=== PATIENT | male | born 1985 | race Caucasian/White ===

== ENCOUNTER 2020-11-23 19:53 | Inpatient (IN) | payer OTHER ==
[~2020-11-23] VITALS: Ht 193 cm; Wt 107.3 kg
--- NOTE | 2020-11-23 20:07 | NUR ---
LYNETTE FROM [facility] FOR A UTI. EMS STATES PT WAS TRANSFERRED FOR POSSIBLE GALLBLADDER INFLAMATION. PT SYMPTOMS BEGAN LAST THURSDAY. PT REPORTS A FEVER, VOMITTING, PAIN IN THIGHS AND TESTICLES, FLANK PAIN, AND FREQUENT OLIGURIA LAST THURSDAY. NO CURRENTL SYMPTOMS AT THIS TIME. PT TREATED WITH POTASSIUM, ATX, 2800 FLUIDS AND TYLENOL MANAGER HEAVY DUTY FOR SEPSIS PROTOCOL. PT REPORTS NO DISCHARGE FROM PENIS BUT MILD HEMATURIA. ATTACHED TO CARD/SP02/BP MONITORS. VSS. NADN. BED IN LOW POSITION, RAILS ENGAGED, CALL LIGHT ON LAP. WCTM
[2020-11-23 21:09] LABS: BASOPHILS % (AUTO) 0 % (0-1); EOSINOPHILS % (AUTO) 0 % (1-7); LYMPHOCYTES % (AUTO) 33 % (22-44); MEAN CORPUSCULAR HEMOGLOBIN 30.1 pg (27.5-34.5); MEAN CORPUSCULAR HGB CONC 35.1 g/dL (33.2-36.2); MONOCYTES % (AUTO) 12 % (2-9); NEUTROPHILS % (AUTO) 55 % (42-75); PLATELET COUNT 226 x10^3/uL (130-400); RED BLOOD COUNT 4.18 x10^6/uL (4.38-5.82); RED CELL DISTRIBUTION WIDTH 12.3 % (9.4-14.8)
[2020-11-23 21:13] LABS: ALANINE AMINOTRANSFERASE 29 U/L (12-78); ANION GAP 8 mmol/L (5-15); CHLORIDE 102 mmol/L (98-107); CREATININE 0.97 mg/dL (0.7-1.3)
[2020-11-23 21:15] LABS: ALKALINE PHOSPHATASE 57 U/L (45-117); TOTAL PROTEIN 6.5 g/dL (6.4-8.2)
--- NOTE | 2020-11-23 21:23 | NUR ---
PT OFF UNIT IN IMAGING
[2020-11-23 21:36] LABS: MICROSCOPIC AUTO
[2020-11-23] MEDS ORDERED: ACETAMINOPHEN 500 MG TABLET ONE (21:42)
[2020-11-23] MEDS ORDERED: ACETAMINOPHEN 500 MG TABLET PO ONE (22:00)
--- NOTE | 2020-11-23 22:04 | NUR ---
PT SLEEPING IN BED. EYES CLOSED. GIVEN BLANKETS AND PILLOW ERLIER. CONNECTED TO ALL MONITORS. VSS WITH LOWERED HR 50 . WCTM.
[2020-11-23] MEDS ORDERED: ALBUTEROL/IPRATROPIUM 2.5MG/0.5MG, 3 ML NPPB ONE (23:00)
[2020-11-24 01:05] LABS: GLUCOSE, CSF 40 mg/dL (40-80); TOTAL PROTEIN,CSF 263 mg/dL (15-45)
--- NOTE | 2020-11-24 02:29 | NUR ---
Patient is resting comfortably in bed. Bed in lowest, rails engaged, call light on lap. Vital Signs within normal limits. WCTM.
[2020-11-24] MEDS ORDERED: CEFTRIAXONE 2 GM in DEXTROSE 5% 50 ML IVPB ONE (02:30)
--- NOTE | 2020-11-24 03:59 | NUR ---
PT STATES HE DOES NOT TAKE ANY MEDICATIONS FOR MED REC.
[2020-11-24] MEDS ORDERED: ONDANSETRON 2MG/ML, 2ML IVPush PRN (04:00)
[2020-11-24] MEDS ORDERED: LACTATED RINGERS 1,000 ML IV SCH (04:00)
[2020-11-24] MEDS ORDERED: GUAIFENESIN/DM 200-20MG, 10ML UDC PO PRN (04:00)
[2020-11-24] MEDS ORDERED: LABETALOL 5MG/ML, 20ML IVPush PRN (04:00)
[2020-11-24] MEDS ORDERED: MELATONIN 5 MG TABLET PO PRN (04:00)
--- NOTE | 2020-11-24 04:11 | NUR ---
[facility] STATES WE DO NOT NEED ISO ON PT. PT LAST BM THURSDAY.
--- NOTE | 2020-11-24 04:12 | NUR ---
LACTATED RINGERS AND ROCEPHIN INCOMPATIBLE ACCORDING TO MICROMEDIX
--- NOTE | 2020-11-24 04:24 | NUR ---
DID NOT GIVE ROCEPHIN. AWAITING ORDER TO CHANGE OCCORDING TO 12 HOUR TIME. LAST DOSE WAS AT [id number]. PT RSTING IN BED. VSS. AWAITING TO GO TO FLOOR. EVAN.
[2020-11-24] MEDS ORDERED: KETOROLAC 30 MG/1 ML ONE (04:26)
[2020-11-24] MEDS: KETOROLAC 30 MG/1 ML IV PRN ×2 (04:27→18:05)
[2020-11-24 05:06] LABS: ALANINE AMINOTRANSFERASE 27 U/L (12-78); ALBUMIN 2.9 g/dL (3.4-5.0); ANION GAP 7 mmol/L (5-15); CHLORIDE 97 mmol/L (98-107); CREATININE 0.86 mg/dL (0.7-1.3)
[2020-11-24 05:12] LABS: BASOPHILS % (AUTO) 0 % (0-1); EOSINOPHILS % (AUTO) 0 % (1-7); LYMPHOCYTES % (AUTO) 15 % (22-44); MEAN CORPUSCULAR HEMOGLOBIN 30.4 pg (27.5-34.5); MEAN CORPUSCULAR HGB CONC 35.9 g/dL (33.2-36.2); MEAN PLATELET VOLUME 8.1 fL (7.4-10.4); MONOCYTES % (AUTO) 9 % (2-9); NEUTROPHILS % (AUTO) 76 % (42-75); PLATELET COUNT 219 x10^3/uL (130-400); RED BLOOD COUNT 4.11 x10^6/uL (4.38-5.82); RED CELL DISTRIBUTION WIDTH 12.4 % (9.4-14.8)
[2020-11-24 05:17] LABS: ALKALINE PHOSPHATASE 56 U/L (45-117); BILIRUBIN,TOTAL 0.8 mg/dL (0.2-1.0); TOTAL PROTEIN 6.4 g/dL (6.4-8.2)
[2020-11-24 05:27] VITALS: BP 147/61
[2020-11-24] MEDS: ACETAMINOPHEN 325 MG TABLET PO PRN ×2 (05:49→13:12)
[2020-11-24 06:49] LABS: RAPID INFLUENZA A Negative (Negative); RAPID INFLUENZA B Negative (Negative)
[2020-11-24 06:58] VITALS: BP 115/74
[2020-11-24] MEDS ORDERED: POTASSIUM CHLORIDE 20 MEQ TAB.ER.PRT PO ONE ×2 (07:00→08:00)
[2020-11-24] MEDS ORDERED: VANCOMYCIN PER PHARMACY MC PRN (08:00)
[2020-11-24 08:56] LABS: HCT (SEDRATE) 35.6 % (39.2-51.8)
[2020-11-24] MEDS ORDERED: PHARMACOKINETIC MONITORING MC PRN (09:00)
[2020-11-24] MEDS ORDERED: VANCOMYCIN 2,500 MG in SODIUM CHLORIDE 0.9% 500 ML IV ONE (09:00)
[2020-11-24 10:44] LABS: MICROSCOPIC NOT IND
[2020-11-24] MEDS: NS + 20MEQ KCL 1,000 ML IV SCH (11:11)
[2020-11-24 13:09] VITALS: BP 134/88
[2020-11-24] MEDS ORDERED: DIPHENHYDRAMINE 50 MG/ML, 1ML IVPush PRN (13:30)
[2020-11-24] MEDS: TAMSULOSIN 0.4 MG CAP.ER.24H PO SCH (13:57)
[2020-11-24] MEDS: PHENAZOPYRIDINE 200 MG TABLET PO PRN (13:57)
[2020-11-24] MEDS: CEFTRIAXONE 2 GM in DEXTROSE 5% 50 ML IVPB SCH (14:57)
[2020-11-24] MEDS: ACYCLOVIR 1,000 MG in SODIUM CHLORIDE 0.9% 250 ML IV SCH (18:05)
[2020-11-24] MEDS: VANCOMYCIN 1,900 MG in SODIUM CHLORIDE 0.9% 250 ML IV SCH (19:23)
[2020-11-24 19:29] VITALS: BP 133/74
[2020-11-25] MEDS: ACETAMINOPHEN 325 MG TABLET PO PRN ×3 (00:07→15:48)
[2020-11-25 00:36] VITALS: BP 158/74
[2020-11-25] MEDS: KETOROLAC 30 MG/1 ML IV PRN ×2 (00:38→06:29)
[2020-11-25] MEDS: NS + 20MEQ KCL 1,000 ML IV SCH ×2 (00:48→21:36)
[2020-11-25] MEDS: ACYCLOVIR 1,000 MG in SODIUM CHLORIDE 0.9% 250 ML IV SCH ×3 (01:34→18:05)
[2020-11-25] MEDS: CEFTRIAXONE 2 GM in DEXTROSE 5% 50 ML IVPB SCH ×2 (03:05→17:02)
[2020-11-25] MEDS: VANCOMYCIN 1,900 MG in SODIUM CHLORIDE 0.9% 250 ML IV SCH (03:40)
[2020-11-25 05:03] LABS: BASOPHILS % (AUTO) 0 % (0-1); EOSINOPHILS % (AUTO) 0 % (1-7); LYMPHOCYTES % (AUTO) 22 % (22-44); MEAN CORPUSCULAR HEMOGLOBIN 29.9 pg (27.5-34.5); MEAN CORPUSCULAR HGB CONC 35.4 g/dL (33.2-36.2); MEAN PLATELET VOLUME 8.2 fL (7.4-10.4); MONOCYTES % (AUTO) 9 % (2-9); NEUTROPHILS % (AUTO) 69 % (42-75); PLATELET COUNT 251 x10^3/uL (130-400); RED BLOOD COUNT 4.07 x10^6/uL (4.38-5.82); RED CELL DISTRIBUTION WIDTH 12.2 % (9.4-14.8)
[2020-11-25 05:14] LABS: ANION GAP 4 mmol/L (5-15); CHLORIDE 100 mmol/L (98-107)
[2020-11-25 05:15] LABS: CREATININE 0.98 mg/dL (0.7-1.3)
[2020-11-25] MEDS ORDERED: SINCALIDE (KINEVAC) 5 MCG ONE (06:28)
[2020-11-25 07:18] VITALS: BP 138/70
[2020-11-25] MEDS ORDERED: POTASSIUM CHLORIDE 20 MEQ TAB.ER.PRT PO ONE (07:30)
[2020-11-25] MEDS: TAMSULOSIN 0.4 MG CAP.ER.24H PO SCH (08:15)
[2020-11-25] MEDS ORDERED: VANCOMYCIN 1,900 MG in SODIUM CHLORIDE 0.9% 250 ML IV SCH (13:00)
[2020-11-25] MEDS: HYDROcodone/APAP 5/325 TABLET PO PRN ×2 (13:29→21:40)
[2020-11-25] MEDS: VANCOMYCIN 2,100 MG in SODIUM CHLORIDE 0.9% 500 ML IV SCH ×2 (13:53→21:35)
[2020-11-25 15:15] VITALS: BP 137/78
[2020-11-25] MEDS ORDERED: GADOTERATE 10 MMOL/20ML SYR ONE (15:29)
[2020-11-25] MEDS: POLYETHYLENE GLYCOL 17 GM PACKET PO PRN (15:55)
[2020-11-25 20:09] VITALS: BP 130/73
[2020-11-26] MEDS: ACYCLOVIR 1,000 MG in SODIUM CHLORIDE 0.9% 250 ML IV SCH ×3 (01:53→17:24)
[2020-11-26] MEDS: HYDROcodone/APAP 5/325 TABLET PO PRN ×3 (03:12→16:02)
[2020-11-26 03:33] VITALS: BP 140/89
[2020-11-26] MEDS: ACETAMINOPHEN 325 MG TABLET PO PRN ×3 (03:46→19:36)
[2020-11-26] MEDS: CEFTRIAXONE 2 GM in DEXTROSE 5% 50 ML IVPB SCH ×2 (03:47→15:56)
[2020-11-26 05:02] LABS: BASOPHILS % (AUTO) 1 % (0-1); EOSINOPHILS % (AUTO) 0 % (1-7); LYMPHOCYTES % (AUTO) 21 % (22-44); MEAN CORPUSCULAR HEMOGLOBIN 30.2 pg (27.5-34.5); MEAN CORPUSCULAR HGB CONC 35.7 g/dL (33.2-36.2); MEAN PLATELET VOLUME 8.5 fL (7.4-10.4); MONOCYTES % (AUTO) 9 % (2-9); NEUTROPHILS % (AUTO) 69 % (42-75); PLATELET COUNT 287 x10^3/uL (130-400); RED BLOOD COUNT 4.09 x10^6/uL (4.38-5.82); RED CELL DISTRIBUTION WIDTH 12.1 % (9.4-14.8)
[2020-11-26 05:05] LABS: ANION GAP 8 mmol/L (5-15); CHLORIDE 97 mmol/L (98-107); CREATININE 0.96 mg/dL (0.7-1.3)
[2020-11-26] MEDS: VANCOMYCIN 2,100 MG in SODIUM CHLORIDE 0.9% 500 ML IV SCH ×2 (05:30→13:02)
[2020-11-26 07:30] VITALS: BP 136/80
[2020-11-26] MEDS ORDERED: POTASSIUM CHLORIDE 20 MEQ TAB.ER.PRT PO ONE (07:30)
[2020-11-26] MEDS: TAMSULOSIN 0.4 MG CAP.ER.24H PO SCH (08:22)
[2020-11-26] MEDS: NS + 20MEQ KCL 1,000 ML IV SCH ×2 (09:46→23:20)
[2020-11-26] MEDS: KETOROLAC 30 MG/1 ML IV PRN ×2 (11:25→19:37)
[2020-11-26 14:42] VITALS: BP 129/78
[2020-11-26] MEDS ORDERED: OMNIPAQUE 350 MG/ML, 100ML BOTTLE ONE (15:32)
[2020-11-26 19:29] VITALS: BP 145/80
[2020-11-27 00:46] VITALS: BP 114/74
[2020-11-27] MEDS: ACYCLOVIR 1,000 MG in SODIUM CHLORIDE 0.9% 250 ML IV SCH (01:47)
[2020-11-27] MEDS: KETOROLAC 30 MG/1 ML IV PRN ×4 (02:30→21:42)
[2020-11-27] MEDS: CEFTRIAXONE 2 GM in DEXTROSE 5% 50 ML IVPB SCH ×2 (03:00→15:34)
[2020-11-27] MEDS: HYDROcodone/APAP 5/325 TABLET PO PRN ×2 (03:46→19:46)
[2020-11-27 04:40] LABS: BASOPHILS % (AUTO) 1 % (0-1); EOSINOPHILS % (AUTO) 1 % (1-7); LYMPHOCYTES % (AUTO) 19 % (22-44); MEAN CORPUSCULAR HEMOGLOBIN 29.9 pg (27.5-34.5); MEAN CORPUSCULAR HGB CONC 35.2 g/dL (33.2-36.2); MEAN PLATELET VOLUME 7.6 fL (7.4-10.4); MONOCYTES % (AUTO) 8 % (2-9); NEUTROPHILS % (AUTO) 72 % (42-75); PLATELET COUNT 317 x10^3/uL (130-400); RED BLOOD COUNT 4.32 x10^6/uL (4.38-5.82); RED CELL DISTRIBUTION WIDTH 12.3 % (9.4-14.8)
[2020-11-27 04:51] LABS: ALANINE AMINOTRANSFERASE 36 U/L (12-78); ALBUMIN 2.7 g/dL (3.4-5.0); ANION GAP 7 mmol/L (5-15); CALCIUM 8.3 mg/dL (8.5-10.1); CHLORIDE 99 mmol/L (98-107)
[2020-11-27 04:54] LABS: ALKALINE PHOSPHATASE 58 U/L (45-117); BILIRUBIN,TOTAL 0.6 mg/dL (0.2-1.0); CREATININE 0.82 mg/dL (0.7-1.3); TOTAL PROTEIN 6.7 g/dL (6.4-8.2)
[2020-11-27 06:57] VITALS: BP 139/78
[2020-11-27] MEDS: ACETAMINOPHEN 325 MG TABLET PO PRN ×3 (06:57→19:47)
[2020-11-27] MEDS: TAMSULOSIN 0.4 MG CAP.ER.24H PO SCH ×2 (08:23→21:42)
[2020-11-27] MEDS: morphine SULFATE 10 MG/ML, 1ML IVPush PRN ×2 (08:23→22:12)
[2020-11-27] MEDS: NS + 20MEQ KCL 1,000 ML IV SCH ×2 (11:04→21:42)
[2020-11-27] MEDS ORDERED: DOXYCYCLINE 100MG TABLET PO SCH (12:00)
[2020-11-27 13:36] VITALS: BP 152/92
[2020-11-27] MEDS: DOXYCYCLINE 100 MG in DEXTROSE 5% 250 ML IV SCH (13:51)
[2020-11-27 19:10] VITALS: BP 118/76
[2020-11-27] MEDS: POLYETHYLENE GLYCOL 17 GM PACKET PO PRN (19:46)
[2020-11-28] MEDS: DOXYCYCLINE 100 MG in DEXTROSE 5% 250 ML IV SCH (01:43)
[2020-11-28 01:45] VITALS: BP 117/69
[2020-11-28] MEDS: CEFTRIAXONE 2 GM in DEXTROSE 5% 50 ML IVPB SCH ×2 (03:07→16:34)
[2020-11-28] MEDS: morphine SULFATE 10 MG/ML, 1ML IVPush PRN (03:26)
[2020-11-28 04:47] LABS: HCT (SEDRATE) 38.3 % (39.2-51.8)
[2020-11-28 04:53] LABS: BASOPHILS % (AUTO) 0 % (0-1); EOSINOPHILS % (AUTO) 1 % (1-7); LYMPHOCYTES % (AUTO) 17 % (22-44); MEAN PLATELET VOLUME 7.8 fL (7.4-10.4); MONOCYTES % (AUTO) 8 % (2-9); NEUTROPHILS % (AUTO) 74 % (42-75); PLATELET COUNT 350 x10^3/uL (130-400); RED CELL DISTRIBUTION WIDTH 12.4 % (9.4-14.8)
[2020-11-28 04:56] LABS: ALBUMIN 2.8 g/dL (3.4-5.0); ANION GAP 2 mmol/L (5-15); CALCIUM 8.6 mg/dL (8.5-10.1); CHLORIDE 102 mmol/L (98-107)
[2020-11-28 05:03] LABS: ALANINE AMINOTRANSFERASE 36 U/L (12-78); ALKALINE PHOSPHATASE 60 U/L (45-117); BILIRUBIN,TOTAL 0.6 mg/dL (0.2-1.0); CREATININE 1.02 mg/dL (0.7-1.3); TOTAL PROTEIN 6.7 g/dL (6.4-8.2)
[2020-11-28 06:44] VITALS: BP 143/87
[2020-11-28] MEDS: ACETAMINOPHEN 325 MG TABLET PO PRN ×2 (07:02→19:39)
[2020-11-28] MEDS: KETOROLAC 30 MG/1 ML IV PRN ×2 (07:04→14:06)
[2020-11-28] MEDS: NS + 20MEQ KCL 1,000 ML IV SCH ×3 (08:17→23:23)
[2020-11-28] MEDS: TAMSULOSIN 0.4 MG CAP.ER.24H PO SCH ×2 (08:17→19:39)
[2020-11-28 13:39] VITALS: BP 134/87
[2020-11-28] MEDS: HYDROcodone/APAP 5/325 TABLET PO PRN (14:05)
[2020-11-28 19:24] VITALS: BP 153/103
[2020-11-29 00:17] VITALS: BP 125/81
[2020-11-29] MEDS: CEFTRIAXONE 2 GM in DEXTROSE 5% 50 ML IVPB SCH (03:19)
[2020-11-29] MEDS: HYDROcodone/APAP 5/325 TABLET PO PRN ×2 (03:19→18:04)
[2020-11-29] MEDS: ACETAMINOPHEN 325 MG TABLET PO PRN (03:27)
[2020-11-29 05:50] LABS: ANION GAP 6 mmol/L (5-15); CALCIUM 8.8 mg/dL (8.5-10.1); CHLORIDE 102 mmol/L (98-107)
[2020-11-29 07:59] VITALS: BP 130/86
[2020-11-29] MEDS: NS + 20MEQ KCL 1,000 ML IV SCH ×2 (09:09→19:34)
[2020-11-29] MEDS: TAMSULOSIN 0.4 MG CAP.ER.24H PO SCH ×2 (09:09→21:09)
[2020-11-29 11:45] LABS: BASOPHILS % (AUTO) 1 % (0-1); EOSINOPHILS % (AUTO) 1 % (1-7); LYMPHOCYTES % (AUTO) 19 % (22-44); MEAN CORPUSCULAR HEMOGLOBIN 30.4 pg (27.5-34.5); MEAN PLATELET VOLUME 7.2 fL (7.4-10.4); MONOCYTES % (AUTO) 9 % (2-9); NEUTROPHILS % (AUTO) 72 % (42-75); PLATELET COUNT 389 x10^3/uL (130-400); RED BLOOD COUNT 4.41 x10^6/uL (4.38-5.82); RED CELL DISTRIBUTION WIDTH 12.7 % (9.4-14.8)
[2020-11-29] MEDS: DOXYCYCLINE 100 MG in DEXTROSE 5% 250 ML IV SCH (12:48)
[2020-11-29 13:38] VITALS: BP 151/95
[2020-11-29 14:15] LABS: BORRELIA SMEAR NO SPIROCHETES SEEN (NONE SEEN)
[2020-11-29] MEDS: PHENAZOPYRIDINE 200 MG TABLET PO PRN (18:03)
[2020-11-29 21:10] VITALS: BP 120/80
[2020-11-30] MEDS: DOXYCYCLINE 100 MG in DEXTROSE 5% 250 ML IV SCH ×2 (00:06→12:06)
[2020-11-30 01:15] VITALS: BP 124/79
[2020-11-30] MEDS: NS + 20MEQ KCL 1,000 ML IV SCH ×2 (04:26→17:55)
[2020-11-30 06:32] VITALS: BP 121/74
[2020-11-30] MEDS: TAMSULOSIN 0.4 MG CAP.ER.24H PO SCH ×2 (08:52→20:52)
[2020-11-30 09:25] LABS: HCT (SEDRATE) 38.1 % (39.2-51.8)
[2020-11-30] MEDS ORDERED: LORazepam 2 MG/ML, 1ML IVPush ONE ×2 (11:00→17:00)
[2020-11-30 11:08] LABS: C-REACTIVE PROTEIN, QUANT 1.6 mg/dL (0.02-0.49)
[2020-11-30] MEDS ORDERED: GADOTERATE 10 MMOL/20ML SYR ONE (16:50)
[2020-11-30 20:48] VITALS: BP 123/82
[2020-12-01] MEDS: DOXYCYCLINE 100 MG in DEXTROSE 5% 250 ML IV SCH (00:28)
[2020-12-01 00:30] VITALS: BP 117/75
[2020-12-01] MEDS: NS + 20MEQ KCL 1,000 ML IV SCH (04:00)
[2020-12-01 06:52] VITALS: BP 122/80
[2020-12-01] MEDS: TAMSULOSIN 0.4 MG CAP.ER.24H PO SCH ×2 (09:10→20:39)
[2020-12-01 12:30] VITALS: BP 121/80
[2020-12-01 19:44] VITALS: BP 115/75
[2020-12-02 01:30] VITALS: BP 125/84
[2020-12-02 08:10] VITALS: BP 134/83
[2020-12-02] MEDS: TAMSULOSIN 0.4 MG CAP.ER.24H PO SCH ×2 (09:04→20:26)
[2020-12-02] MEDS: NS + 20MEQ KCL 1,000 ML IV SCH (09:07)
[2020-12-02 12:57] VITALS: BP 129/81
[2020-12-02 19:23] VITALS: BP 129/64
[2020-12-03] MEDS: NS + 20MEQ KCL 1,000 ML IV SCH ×2 (00:06→12:41)
[2020-12-03 01:16] VITALS: BP 126/74
[2020-12-03 05:01] LABS: BASOPHILS % (AUTO) 0 % (0-1); EOSINOPHILS % (AUTO) 0 % (1-7); LYMPHOCYTES % (AUTO) 5 % (22-44); MEAN CORPUSCULAR HEMOGLOBIN 30.9 pg (27.5-34.5); MEAN CORPUSCULAR HGB CONC 35.1 g/dL (33.2-36.2); MEAN PLATELET VOLUME 7.5 fL (7.4-10.4); MONOCYTES % (AUTO) 1 % (2-9); NEUTROPHILS % (AUTO) 94 % (42-75); PLATELET COUNT 468 x10^3/uL (130-400); RED BLOOD COUNT 4.03 x10^6/uL (4.38-5.82); RED CELL DISTRIBUTION WIDTH 12.9 % (9.4-14.8)
[2020-12-03 05:16] LABS: ALANINE AMINOTRANSFERASE 77 U/L (12-78); ALBUMIN 3.1 g/dL (3.4-5.0); ANION GAP 6 mmol/L (5-15); C-REACTIVE PROTEIN, QUANT 0.64 mg/dL (0.02-0.49); CHLORIDE 103 mmol/L (98-107)
[2020-12-03 05:19] LABS: ALKALINE PHOSPHATASE 65 U/L (45-117); BILIRUBIN,TOTAL 0.9 mg/dL (0.2-1.0); TOTAL PROTEIN 6.8 g/dL (6.4-8.2)
[2020-12-03] MEDS: PANTOPRAZOLE 40MG TABLET PO SCH (05:27)
[2020-12-03 05:53] LABS: HCT (SEDRATE) 35.5 % (39.2-51.8)
[2020-12-03 06:51] VITALS: BP 128/51
[2020-12-03] MEDS: TAMSULOSIN 0.4 MG CAP.ER.24H PO SCH ×2 (08:41→21:02)
[2020-12-03] MEDS: CHOLECALCIFEROL 5,000u TAB PO SCH (08:42)
[2020-12-03 13:00] VITALS: BP 124/79
[2020-12-03 19:09] VITALS: BP 132/80
[2020-12-04 02:04] VITALS: BP 117/66
[2020-12-04] MEDS: PANTOPRAZOLE 40MG TABLET PO SCH (05:28)
[2020-12-04 06:46] VITALS: BP 126/71
[2020-12-04] MEDS: CHOLECALCIFEROL 5,000u TAB PO SCH (09:51)
[2020-12-04] MEDS: TAMSULOSIN 0.4 MG CAP.ER.24H PO SCH (09:51)
[2020-12-04] MEDS ORDERED: TAMS-11 PO (11:06)
[2020-12-04] MEDS ORDERED: HYDR-2214 PO (11:06)
[2020-12-04] MEDS ORDERED: PRED20TA PO (11:26)
[2020-12-04 13:21] VITALS: BP 124/76
[2020-12-04 16:22] LABS: ANA SCREEN POSITIVE (Negative); ANA TITER 1:40; ANTI-NUCLEAR ANTIBODY PATTERN NUCLEOLAR
== END 2020-12-04 14:55 | disposition home or self-care (01) | DRG 98 ==
LOC: ED 19:58 → EDIP 11-24 03:07 → 4NE 11-24 05:06 → 3N 11-26 17:42
PROVIDERS: ADMIT Internal Medicine; ATTEND Hospitalist
PROC: 009U3ZX Drainage of Spinal Canal, Percutaneous Approach, Diagnostic (ICD-10-PCS; principal; 2020-11-24)
DX: G37.3 Acute transverse myelitis in demyelinating disease of central nervous system (principal); A87.9 Viral meningitis, unspecified; E87.1 Hypo-osmolality and hyponatremia; E87.6 Hypokalemia; M48.02 Spinal stenosis, cervical region; N43.3 Hydrocele, unspecified; I86.1 Scrotal varices; N45.1 Epididymitis; E87.8 Other disorders of electrolyte and fluid balance, not elsewhere classified; D63.8 Anemia in other chronic diseases classified elsewhere; N30.90 Cystitis, unspecified without hematuria; Z79.899 Other long term (current) drug therapy
CPT/HCPCS: 36415; 62270; 70553; 71046; 72156; 72157; 72158; 72193; 76870; 78227; 80048; 80053; 80202; 81001; 81003; 82306; 82607; 82945; 83519; 83520; 83690; 83735; 84100; 84145; 84157; 84443; 85025; 85651; 86038; 86039; 86140; 86148; 86256; 86308; 86430; 86592; 86694; 86735; 86765; 86787; 86788; 86789; 87040; 87070; 87086; 87205; 87252; 87400; 87491; 87529; 87591; 87798; 87806; 88313; 89051; 96360; 99285; G0378; J0133; J0696; J1885; J2930; J3370; J3480; J7060; Q9967; A9537; A9575; G0475; J1200; J2060; J2270; J2805; J7040; J7050; J7120

== ENCOUNTER 2020-12-05 14:04 | Emergency (ER) | payer OTHER ==
[~2020-12-05] VITALS: Ht 193 cm; Wt 102.0 kg
[~2020-12-05 14:04] MED LIST: HYDR-2214 PO; PRED20TA PO; TAMS-11 PO
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
[2020-12-05 15:08] LABS: BASOPHILS % (AUTO) 0 % (0-1); EOSINOPHILS % (AUTO) 0 % (1-7); LYMPHOCYTES % (AUTO) 17 % (22-44); MEAN CORPUSCULAR HEMOGLOBIN 30.2 pg (27.5-34.5); MEAN CORPUSCULAR HGB CONC 34.6 g/dL (33.2-36.2); MEAN PLATELET VOLUME 7.6 fL (7.4-10.4); MONOCYTES % (AUTO) 9 % (2-9); NEUTROPHILS % (AUTO) 73 % (42-75); PLATELET COUNT 458 x10^3/uL (130-400); RED BLOOD COUNT 4.55 x10^6/uL (4.38-5.82); RED CELL DISTRIBUTION WIDTH 12.8 % (9.4-14.8)
--- NOTE | 2020-12-05 15:13 | NUR ---
XRAY AT BS. PER DR NOONAN, PT IS OKAY TO HAVE PO MEDS FROM HOME.
[2020-12-05 15:20] LABS: ALBUMIN 3.2 g/dL (3.4-5.0); ANION GAP 6 mmol/L (5-15); CALCIUM 8.8 mg/dL (8.5-10.1); CHLORIDE 101 mmol/L (98-107)
[2020-12-05 15:26] LABS: CREATININE 0.91 mg/dL (0.7-1.3); TROPONIN I < 0.015 ng/mL (0.000-0.045)
[2020-12-05 16:25] VITALS: BP 122/72
--- NOTE | 2020-12-05 16:45 | NUR ---
PT D/C WITH D/C SUMMARY AND F/U INSTRUCTIONS. PT VERBALIZES UNDERSTANDING OF [facility] INSTRUCTIONS. PT AMBULATES TO REGISTRATION DESK WITH STEADY GAIT FOR D/C HOME. PT DENIES ANY OTHER NEEDS PERTAINING TO THIS VISIT.
== END 2020-12-05 17:03 | disposition home or self-care (01) ==
LOC: ED 14:42
DX: R55 Syncope and collapse (principal); E86.0 Dehydration; R07.89 Other chest pain; R94.31 Abnormal electrocardiogram [ECG] [EKG]
CPT/HCPCS: 36415; 71045; 80048; 82040; 84484; 85025; 93005; 99285

== ENCOUNTER 2020-12-17 16:00 | Emergency (ER) | payer OTHER ==
[~2020-12-17] VITALS: Ht 193 cm; Wt 89.6 kg
--- NOTE | 2020-12-17 17:26 | NUR ---
[employer]: PT TO ROOM FROM LOBBY
--- NOTE | 2020-12-17 17:29 | NUR ---
ASSUMED CARE OF PATIENT. PATIENT REPORTS BILATERAL VEINS ARE HARD, PAINFUL AND RED. PT WAS RECENTLY IN THE HOSPITAL. VS STABLE. AT [facility]. CALL LIGHT IN PLACE. WILL CONTINUE TO MONITOR.
--- NOTE | 2020-12-17 17:46 | NUR ---
DR HEMPHILL IN ROOM
[2020-12-17] MEDS ORDERED: KETOROLAC 10MG TABLET PO ONE (18:00)
[2020-12-17] MEDS ORDERED: IBUPROFEN 600 MG TABLET ONE (18:06)
[2020-12-17 18:08] VITALS: BP 107/69
--- NOTE | 2020-12-17 18:08 | NUR ---
PT RESTING IN ROOM. VS STABLE. CALL LIGHT IN PLACE. WLL CONTINUE TO MONITOR.
[2020-12-17] MEDS ORDERED: IBUPROFEN 600 MG TABLET PO ONE (18:30)
--- NOTE | 2020-12-17 19:09 | NUR ---
US CALLED TO EXPEDITE EXAM
== END 2020-12-17 21:19 | disposition home or self-care (01) ==
LOC: ED 17:38
DX: I80.8 Phlebitis and thrombophlebitis of other sites (principal); M79.631 Pain in right forearm; M79.632 Pain in left forearm; Z87.891 Personal history of nicotine dependence
CPT/HCPCS: 93970; 99284